=== PATIENT | male | born 1930 | race Caucasian/White ===

== ENCOUNTER 2018-12-22 12:11 | Emergency (ER) | payer MEDICARE, OTHER ==
[~2018-12-22] VITALS: Ht 167.6 cm; Wt 69.4 kg
[2018-12-22 13:27] LABS: Urine Bacteria NONE SEEN /hpf (None Seen); Urine Blood 3+ /uL (Negative); Urine Specific Gravity 1.018 (1.001-1.035); Urine WBC 1093 /hpf (0 - 3)
[2018-12-22 14:23] VITALS: BP 131/52
== END 2018-12-22 15:10 | disposition home or self-care (01) ==
LOC: ER 12:11
DX: N39.0 Urinary tract infection, site not specified (principal); R33.9 Retention of urine, unspecified; E78.5 Hyperlipidemia, unspecified; I12.9 Hypertensive chronic kidney disease with stage 1 through stage 4 chronic kidney disease, or unspecified chronic kidney disease; N18.9 Chronic kidney disease, unspecified; I25.810 Atherosclerosis of coronary artery bypass graft(s) without angina pectoris; Z90.49 Acquired absence of other specified parts of digestive tract; Z95.1 Presence of aortocoronary bypass graft
CPT/HCPCS: 51702; 81001